=== PATIENT | male | born 1990 | race Two or more races ===

== ENCOUNTER 2024-03-17 00:38 | Emergency (ER) | payer MEDICAID, OTHER ==
[~2024-03-17] VITALS: Ht 170.2 cm; Wt 61.3 kg
[2024-03-17] MEDS ORDERED: CEPH500C PO (02:23)
[2024-03-17] MEDS ORDERED: CLIN1CAP70 PO (02:23)
[2024-03-17] MEDS ORDERED: ACE3T PO (02:23)
[2024-03-17 02:33] VITALS: BP 107/63; PULSE 59; RESP 20; O2SAT 99
[2024-03-17] MEDS: ONDANSETRON ODT 4 MG TAB PO ONE (04:31)
[2024-03-17] MEDS: HYDROcodone-ACET 10/325MG TAB PO ONE (04:31)
[2024-03-17] MEDS: ceFAZolin 1GM/50ML 50 ML IV ONE ×2 (05:01)
[2024-03-17] MEDS: LIDOCAINE 1% HCL (LOCAL ANESTH.) INJ 20ML MDV ONE (05:02)
[2024-03-17] MEDS: LIDOCAINE 1% HCL (LOCAL ANESTH.) INJ 20ML MDV ID ONE (05:02)
[2024-03-17] MEDS: BACITRACIN TOP OINT 1 UD PKG TOP ONE (05:30)
== END 2024-03-17 06:20 | disposition home or self-care (01) ==
LOC: ER 00:38
DX: S92.414B Nondisplaced fracture of proximal phalanx of right great toe, initial encounter for open fracture (principal); S92.501A Displaced unspecified fracture of right lesser toe(s), initial encounter for closed fracture; W18.09XA Striking against other object with subsequent fall, initial encounter; Y93.89 Activity, other specified; Y92.89 Other specified places as the place of occurrence of the external cause; Y99.8 Other external cause status
CPT/HCPCS: 11730; 12004; 73630; 96365; 99284; J0690; J2001; Q0162